=== PATIENT | female | born 1975 | race Caucasian/White ===

== ENCOUNTER 2017-11-01 23:20 | Emergency (ER) | payer BC ==
[2017-11-02 00:58] LABS: BASOPHIL % 0.2 % (0-2)
[2017-11-02 01:05] LABS: CALCIUM 9.1 mg/dL (8.5-10.1); CHLORIDE SERUM 102 mmol/L (98-107); CREATININE SERUM 0.6 mg/dL (0.6-1.0); GFR1 > 60 mL/min; GLUCOSE SERUM 184 mg/dL (74-106); POTASSIUM SERUM 3.3 mmol/L (3.5-5.1); SODIUM SERUM 138 mmol/L (136-145)
[2017-11-02 01:10] LABS: ALKALINE PHOSPHATASE 107 U/L (46-116); ALT/SGPT 98 U/L (14-59); AST/SGOT 67 U/L (15-37); BILIRUBIN TOTAL 0.26 mg/dL (0.20-1.00); LIPASE 227 IU/L (73-393); TOTAL PROTEIN, SERUM 7.9 g/dL (6.4-8.2)
[2017-11-02 01:11] LABS: ALBUMIN 3.3 g/dL (3.4-5.0)
[2017-11-02 01:17] LABS: microscopic required? YES; urine erythrocyte NEGATIVE (NEGATIVE)
[2017-11-02 01:18] LABS: PLATELET COUNT 485 x10^3mcL (130-400); RED CELL DISTRIBUTION WIDTH 16.3 % (11.5-14.5)
[2017-11-02 04:44] VITALS: BP 121/56
== END 2017-11-02 04:44 | disposition home or self-care (01) ==
LOC: ED 23:20
PROVIDERS: Emergency Medicine
DX: K80.20 Calculus of gallbladder without cholecystitis without obstruction (principal); N39.0 Urinary tract infection, site not specified
CPT/HCPCS: J1885; J7030; Q0092